=== PATIENT | female | born 1975 | race Caucasian/White ===

== ENCOUNTER 2016-12-29 13:48 | Outpatient (CLI) | payer OTHER ==
[~2016-12-29 13:48] MED LIST: LEVO-T25 MCG; MAGNESIUM400 M1; TOPAMAX25 MG PO; WELLBUTRIN SR100 MG PO; [UNRECOGNIZED DRUG - OTHER]
--- NOTE | 2016-12-29 16:25 | DIAGNOSTIC IMAGING REPORT ---
PROCEDURE: CT ABD/PELVIS WITH CONTRAST CLINICAL INDICATION: Left lower quadrant pain and diarrhea x 10 days. TECHNIQUE: 125 ml of Isovue 300 were injected intravenously and axial images were obtained of the entire abdomen and pelvis with sagittal and coronal reformations. COMPARISON: None. FINDINGS: ABDOMEN: Lung base are clear. Heart size is normal. Liver, gallbladder, pancreas, spleen, adrenal glands and kidneys are normal. Minor calcific atherosclerosis. PELVIS: Normal appendix in the left upper quadrant but no evidence of malrotation. No diverticulosis. Large amount of stool. Hysterectomy. Normal bladder. Two involuting left ovarian cysts, largest 2.3 cm, with trace free fluid. No free air. The bones are unremarkable. IMPRESSION: 1. Two involuting left ovarian cysts with trace free fluid 2. Hysterectomy 3. Obstipation All CT scans at this facility use dose modulation, iterative reconstruction, and/or weight-based dosing when appropriate to reduce radiation dose to as low as reasonably achievable.
== END 2016-12-29 23:00 ==
LOC: LAB SRH 13:48 → CT SRH 13:48
DX: R10.32 Left lower quadrant pain (principal)
CPT/HCPCS: 90047; 90074; 95059; 95150